=== PATIENT | female | born 1955 | race Two or more races ===

== ENCOUNTER 2022-03-28 06:08 | Inpatient (IN) | payer MEDICARE, OTHER ==
[~2022-03-28] VITALS: Ht 139.7 cm; Wt 110.1 kg
[~2022-03-28 06:08] MED LIST: AMLO-483 PO; BIOT5000 PO; CALC-134 XX; CHOL1TAB28 PO; CHRO1CAP2 PO; CYAN1TAB14 PO; MULT-1018 OR; [UNRECOGNIZED DRUG - CODE] OR
[2022-03-28] MEDS ORDERED: CELECOXIB 100 MG CAP ONE (07:14)
[2022-03-28] MEDS ORDERED: ceFAZolin 1GM/50ML 100 ML IV ONE (07:15)
[2022-03-28] MEDS ORDERED: PREGABALIN CAPSULE 75 MG CAP ONE (07:15)
[2022-03-28] MEDS ORDERED: ACETAMINOPHEN IV 100 ML IV ONE (07:15)
[2022-03-28] MEDS ORDERED: TRANEXAMIC ACID 20 ML ONE (07:16)
[2022-03-28] MEDS ORDERED: BUPIVACAINE W/ EPINEPH 0.25% INJ 50ML MDV ONE (07:16)
[2022-03-28] MEDS ORDERED: LIDOCAINE 2% (LOCAL ANESTH.) PF 5ml SDV ONE (07:17)
[2022-03-28] MEDS ORDERED: ONDANSETRON HCL 4 MG/2 ML VIAL ONE (07:17)
[2022-03-28] MEDS ORDERED: VANCOMYCIN HCL 1000 MG VL ONE (07:17)
[2022-03-28] MEDS ORDERED: GLYCOPYRROLATE 0.2 MG/ML 1ML VIAL ONE (07:17)
[2022-03-28] MEDS ORDERED: PROPOFOL 10 MG/ML 20 ML IV ONE (07:17)
[2022-03-28] MEDS ORDERED: KETOROLAC TROMETH 30 MG/ML 1ML VIAL ONE (07:18)
[2022-03-28] MEDS ORDERED: DexAMETHasone SOD PHOS 10MG/1ML VIAL INJ ONE (07:18)
[2022-03-28] MEDS ORDERED: MORPHINE SULF PF 5 MG/10 ML VIAL ONE (07:23)
[2022-03-28] MEDS ORDERED: SODIUM CHLORIDE LOCK 10 ML ONE ×2 (07:30→07:52)
[2022-03-28] MEDS ORDERED: ePHEDrine SULFATE 50 MG/ML AMP ONE (07:52)
[2022-03-28] MEDS ORDERED: CELECOXIB 100 MG CAP PO ONE (09:15)
[2022-03-28] MEDS ORDERED: ACETAMINOPHEN IV 1000 MG/100ML (10MG/ML) IV ONE (09:15)
[2022-03-28] MEDS ORDERED: MORPHINE SULFATE INJ 2 MG/ml SYRG IV PRN (11:00)
[2022-03-28] MEDS ORDERED: HYDROcodone-ACET 5/325MG TAB PO PRN (11:00)
[2022-03-28] MEDS ORDERED: ceFAZolin 1GM/50ML 50 ML IV SCH (11:00)
[2022-03-28] MEDS ORDERED: ONDANSETRON HCL 4 MG/2 ML VIAL IV PRN (11:00)
[2022-03-28] MEDS ORDERED: NITROGLYCERIN 0.4 MG SL TAB SL PRN (11:00)
[2022-03-28] MEDS ORDERED: ACETAMINOPHEN 325 MG TAB PO PRN (11:00)
[2022-03-28] MEDS ORDERED: HYDROmorphone HCL 2 MG/ML VL/or syr IV PRN (11:00)
[2022-03-28] MEDS: SODIUM CHLOR 0.9% PF (SALINE LOCK) 10ML VIAL/SYR IV SCH ×2 (14:00→21:49)
[2022-03-28 16:00] VITALS: BP 132/72
[2022-03-28] MEDS: LACTATED RINGER'S 1,000 ML IV SCH (17:32)
[2022-03-28] MEDS: PREGABALIN CAPSULE 75 MG CAP PO SCH (21:48)
[2022-03-28] MEDS: DOCUSATE SOD 100 MG CAP PO SCH (21:49)
[2022-03-28 22:00] VITALS: BP 135/57
[2022-03-29] MEDS: LACTATED RINGER'S 1,000 ML IV SCH ×3 (04:11→17:00)
[2022-03-29 05:00] VITALS: BP 113/44
[2022-03-29] MEDS: SODIUM CHLOR 0.9% PF (SALINE LOCK) 10ML VIAL/SYR IV SCH ×3 (05:11→21:09)
[2022-03-29 05:55] LABS: Hematocrit 37.9 % (36.0-46.0); Hemoglobin 12.3 g/dL (12.2-16.2)
[2022-03-29 06:37] LABS: BUN/Creatinine Ratio 27.1; Bilirubin, Total 0.6 mg/dL (0.2-1.0); Calcium 9.1 mg/dL (8.5-10.1); Total Protein 5.7 g/dL (6.4-8.2)
[2022-03-29 09:08] VITALS: BP 172/92
[2022-03-29] MEDS: ENOXAPARIN SOD 40 MG/0.4 ML SYRINGE SC SCH (09:09)
[2022-03-29] MEDS: MULTIPLE VITAMIN TAB PO SCH (09:10)
[2022-03-29] MEDS: DOCUSATE SOD 100 MG CAP PO SCH ×2 (09:10→21:09)
[2022-03-29] MEDS: amLODIPine BESYLATE 5 MG TAB PO SCH (09:10)
[2022-03-29] MEDS: PREGABALIN CAPSULE 75 MG CAP PO SCH ×2 (09:10→21:10)
[2022-03-29 13:09] VITALS: BP 143/56
[2022-03-29 17:06] VITALS: BP 110/48
[2022-03-29 22:00] VITALS: BP 139/47
[2022-03-30] MEDS: LACTATED RINGER'S 1,000 ML IV SCH ×2 (00:52→07:15)
[2022-03-30 05:00] VITALS: BP 155/74
[2022-03-30] MEDS: SODIUM CHLOR 0.9% PF (SALINE LOCK) 10ML VIAL/SYR IV SCH ×2 (05:06→14:00)
[2022-03-30 05:48] LABS: Hematocrit 39.2 % (36.0-46.0); Hemoglobin 12.7 g/dL (12.2-16.2)
[2022-03-30 08:20] VITALS: BP 177/63
[2022-03-30] MEDS: amLODIPine BESYLATE 5 MG TAB PO SCH (08:54)
[2022-03-30] MEDS: ENOXAPARIN SOD 40 MG/0.4 ML SYRINGE SC SCH (10:00)
[2022-03-30] MEDS: PREGABALIN CAPSULE 75 MG CAP PO SCH (11:12)
[2022-03-30] MEDS: DOCUSATE SOD 100 MG CAP PO SCH (11:12)
[2022-03-30] MEDS: MULTIPLE VITAMIN TAB PO SCH (11:12)
[2022-03-30] MEDS ORDERED: ENOXAPARIN SOD 40 MG/0.4 ML SYRINGE SC SCH (11:58)
[2022-03-30 12:15] VITALS: BP 131/62
[2022-03-30 15:31] VITALS: BP 102/67
== END 2022-03-30 16:24 | disposition home health service (06) | DRG 470 ==
LOC: SUR 06:08 → OVERFLOW 11:00 → CENTRAL 14:04
PROVIDERS: ADMIT Orthopaedic Surgery Adult Reconstructive Orthopaedic Surgery; ATTEND Orthopaedic Surgery
PROC: 8E0YXBZ Computer Assisted Procedure of Lower Extremity (ICD-10-PCS; 2022-03-28)
PROC: 3E0T3BZ Introduction of Anesthetic Agent into Peripheral Nerves and Plexi, Percutaneous Approach (ICD-10-PCS; 2022-03-28)
PROC: 0SRD0J9 Replacement of Left Knee Joint with Synthetic Substitute, Cemented, Open Approach (ICD-10-PCS; principal; 2022-03-28 07:34)
DX: M17.12 Unilateral primary osteoarthritis, left knee (principal); Z68.43 Body mass index [BMI] 50.0-59.9, adult; E66.01 Morbid (severe) obesity due to excess calories; M21.169 Varus deformity, not elsewhere classified, unspecified knee; Z20.822 Contact with and (suspected) exposure to COVID-19
CPT/HCPCS: 36415; 73562; 80053; 85014; 85018; 86850; 86900; 86901; 97110; 97116; 97163; G0378; J0131; J0690; J1100; J1885; J2001; J2405; J2704